=== PATIENT | female | born 1985 | race Caucasian/White ===

== ENCOUNTER 2018-05-26 12:46 | Emergency (ER) | payer BC, SELFPAY ==
[2018-05-26 13:37] VITALS: BP 135/91; PULSE 75; RESP 16; TEMP 36.5; O2SAT 100
--- NOTE | 2018-05-26 21:11 | W.ED.GENAD ---
Discharge Plan Disposition Patient Disposition: HOME Condition: Good Discharge Details Chief Complaint: Laceration Clinical Impression: Laceration [facility] Care Provider: [facility] Provider: Alexander Amaya Home Meds and New Rx's Prescriptions: No Action No Known Home Meds RF: 0 Discharge Instructions Instructions: Care For Your Stitches (ED), Laceration (ED) Additional Instructions: Please keep the area dry for 48 hours. Please have the sutures removed in the next 7-10 days. If you notice any redness, drainage or discharge please return immediately for reevaluation. If you notice any worsening of your symptoms, or any new symptoms such as vomiting, diarrhea, fever, chills, shortness of breath, chest pain, numbness, weakness, or fainting , please return immediately to the emergency department for reevaluation. Please follow up with your primary care provider as soon as possible for reassessment and reevaluation. As always, it was a pleasure participating in your medical care today. Discharge Data Discharge Date/Time-TO BE ENTERED AT DEPARTURE: 05/26/18 14:25 Medical Decision Making This is a 32-year-old female who presents for a laceration on her right distal brooks. It occurred while mountain biking. The area was initially cleaned on the scene and Steri-Stripped by her significant other. It occurred over 4 hours prior to arrival. Physical exam demonstrates a roughly 5 cm lesion, the proximal 2 cm or very superficial laceration that is linear, with no involvement of the deep tissues or tendons. Distal to this is a very superficial abrasion. The entire area was anesthetized with 1% lidocaine, total of 7 cc. He was then scrubbed vigorously with chlorhexidine scrub, and washed with high-powered normal saline with copious amounts of irrigation. The area was then sutured using 2 5-0 nylon sutures. In a simple interrupted fashion. Good wound edge reapproximation was made. Patient tolerated procedure well. Triple antibiotic ointment and bandaging was in place. Patient's tetanus is up-to-date. She will be discharged home with close follow-up. We discussed red flags which return. I have extensively reviewed the treatment plan and discharge instructions with the patient. I have addressed all patient concerns at this time. The patient was made aware of what symptoms to monitor for that would warrant a return to the emergency department. Discussed the plan with the patient, they demonstrate verbal understanding and agreement with our assessment and plan at this time. HPI General Date/Time Provider Initiated Documentation: 05/26/18 14:00. HPI Narrative: This is a 32-year-old female who presents for a laceration on her right brooks. She is mountain biking when the metal pedal caught her brooks and caused a cut. This occurred roughly 6 hours prior to arrival. Her tetanus is up-to-date. Aside for the pain there she has no other complaints of numbness tingling or weakness. On the scene her boyfriend who is an EMT did apply Steri-Strips to help bring the skin back together. Patient denies any complaints at this time. No other pertinent past medical surgical or social history. Related Data Home Medications Medication Instructions Recorded Confirmed Unknown [No Known Home Meds] 05/26/18 05/26/18 Allergies Allergy/AdvReac Type Severity Reaction Status Date / Time No Known Allergies Allergy Unverified 05/26/18 13:38 General Stated Complaint: Laceration MARIE: 4 Review of Systems Review of Systems All systems reviewed & are unremarkable except as noted in HPI and below PFSH Social History Smoking/Tobacco Use Status: Never Exam Narrative Exam Narrative: 1.Const: Well-nourished, Well-developed, appearing stated age 2.Eyes: PERRL, no conjunctival injection, and symmetrical lids. 3.ENT: Atraumatic external nose and ears. Moist MM. Neck: Symmetric, trachea midline, No thyromegaly. 4.CVS: +S1/S2, No murmurs or gallops. Peripheral pulses 2+ and equal in all extremities. Brisk capillary refill in all extremities. 5.RESP: Unlabored respiratory effort. Clear to auscultation bilaterally. No wheezes rales or rhonchi 6.GI: Soft, Nontender/Nondistended, No hepatosplenomegaly. No guarding or rebound. 7.MSK: Normocephalic, Extremities w/o deformity or ttp No cyanosis or clubbing, Normal movement of all extremities. Normal movement with flexion extension of her lower extremity at all joints. Normal sensation. Patient has a 5 cm laceration over her anterior brooks on the right lower extremity. The proximal 2 cm are a shallow laceration with no significant involvement of the deep structures. The laceration itself is very superficial and linear. Distal to this segment is an abrasion, with no subsequent laceration. No evidence of bony involvement, or other abnormality. 8.Skin: Warm, Dry. No rashes or lesions. 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 Sensation grossly intact, no focal neurologic deficits. 10.Psych: (AAO) x3. Appropriate mood and affect Course Vital Signs Temperature 36.5 C 05/26/18 13:37 Pulse 75 05/26/18 13:37 Respiratory Rate 16 05/26/18 13:37 Blood Pressure 135/91 H 05/26/18 13:37 Pulse Oximetry 100 05/26/18 13:37 Temperature 36.5 C 05/26/18 13:37 Temperature Source Skin 05/26/18 13:37 Pulse 75 05/26/18 13:37 Respiratory Rate 16 05/26/18 13:37 Respiratory Effort 05/26/18 13:39 Blood Pressure 135/91 H 05/26/18 13:37 Blood Pressure Position Sitting 05/26/18 13:37 Pulse Oximetry 100 05/26/18 13:37 Pain Level 0 05/26/18 14:27
--- NOTE | 2018-05-26 21:15 | ED.GENADUL_ITS ---
Discharge Plan Disposition Patient Disposition: HOME Condition: Good Discharge Details Chief Complaint: Laceration Clinical Impression: Laceration Primary Care Provider: [facility] Provider: Alexander Amaya Home Meds and New Rx's Prescriptions: No Action No Known Home Meds RF: 0 Discharge Instructions Instructions: Care For Your Stitches (ED), Laceration (ED) Additional Instructions: Please keep the area dry for 48 hours. Please have the sutures removed in the next 7-10 days. If you notice any redness, drainage or discharge please return immediately for reevaluation. If you notice any worsening of your symptoms, or any new symptoms such as vomiting, diarrhea, fever, chills, shortness of breath , chest pain, numbness, weakness, or fainting , please return immediately to the emergency department for reevaluation. Please follow up with your primary care provider as soon as possible for reassessment and reevaluation. As always, it was a pleasure participating in your medical care today. Discharge Data Discharge Date/Time-TO BE ENTERED AT DEPARTURE: 05/26/18 14:25 Medical Decision Making This is a 32-year-old female who presents for a laceration on her right distal brooks. It occurred while mountain biking. The area was initially cleaned on the scene and Steri-Stripped by her significant other. It occurred over 4 hours prior to arrival. Physical exam demonstrates a roughly 5 cm lesion , the proximal 2 cm or very superficial laceration that is linear, with no involvement of the deep tissues or tendons. Distal to this is a very superficial abrasion. The entire area was anesthetized with 1% lidocaine, total of 7 cc. He was then scrubbed vigorously with chlorhexidine scrub, and washed with high-powered normal saline with copious amounts of irrigation. The area was then sutured using 2 5-0 nylon sutures. In a simple interrupted fashion. Good wound edge reapproximation was made. Patient tolerated procedure well. Triple antibiotic ointment and bandaging was in place. Patient 's tetanus is up-to-date. She will be discharged home with close follow-up. We discussed red flags which return. I have extensively reviewed the treatment plan and discharge instructions with the patient. I have addressed all patient concerns at this time. The patient was made aware of what symptoms to monitor for that would warrant a return to the emergency department. Discussed the plan with the patient, they demonstrate verbal understanding and agreement with our assessment and plan at this time. HPI General Date/Time Provider Initiated Documentation: 05/26/18 14:00 . HPI Narrative: This is a 32-year-old female who presents for a laceration on her right brooks. She is mountain biking when the metal pedal caught her brooks and caused a cut. This occurred roughly 6 hours prior to arrival. Her tetanus is up-to-date. Aside for the pain there she has no other complaints of numbness tingling or weakness. On the scene her boyfriend who is an EMT did apply Steri-Strips to help bring the skin back together. Patient denies any complaints at this time. No other pertinent past medical surgical or social history. Related Data Home Medications Medication Instructions Recorded Confirmed Unknown [No Known Home Meds] 05/26/18 05/26/18 Allergies Allergy/AdvReac Type Severity Reaction Status Date / Time No Known Allergies Allergy Unverified 05/26/18 13:38 General Stated Complaint: Laceration MARIE: 4 Review of Systems Review of Systems All systems reviewed & are unremarkable except as noted in HPI and below PFSH Social History Smoking/Tobacco Use Status: Never Exam Narrative Exam Narrative: 1.Const: Well-nourished, Well-developed, appearing stated age 2.Eyes: PERRL, no conjunctival injection, and symmetrical lids. 3.ENT: Atraumatic external nose and ears. Moist MM. Neck: Symmetric, trachea midline, No thyromegaly. 4.CVS: +S1/S2, No murmurs or gallops. Peripheral pulses 2+ and equal in all extremities. Brisk capillary refill in all extremities. 5.RESP: Unlabored respiratory effort. Clear to auscultation bilaterally. No wheezes rales or rhonchi 6.GI: Soft, Nontender/Nondistended, No hepatosplenomegaly. No guarding or rebound. 7.MSK: Normocephalic, Extremities w/o deformity or ttp No cyanosis or clubbing, Normal movement of all extremities. Normal movement with flexion extension of her lower extremity at all joints. Normal sensation. Patient has a 5 cm laceration over her anterior brooks on the right lower extremity. The proximal 2 cm are a shallow laceration with no significant involvement of the deep structures. The laceration itself is very superficial and linear. Distal to this segment is an abrasion, with no subsequent laceration. No evidence of bony involvement, or other abnormality. 8.Skin: Warm, Dry. No rashes or lesions. 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 Sensation grossly intact, no focal neurologic deficits. 10.Psych: (AAO) x3. Appropriate mood and affect Course Vital Signs Temperature 36.5 C 05/26/18 13:37 Pulse 75 05/26/18 13:37 Respiratory Rate 16 05/26/18 13:37 Blood Pressure 135/91 H 05/26/18 13:37 Pulse Oximetry 100 05/26/18 13:37 Temperature 36.5 C 05/26/18 13:37 Temperature Source Skin 05/26/18 13:37 Pulse 75 05/26/18 13:37 Respiratory Rate 16 05/26/18 13:37 Respiratory Effort 05/26/18 13:39 Blood Pressure 135/91 H 05/26/18 13:37 Blood Pressure Position Sitting 05/26/18 13:37 Pulse Oximetry 100 05/26/18 13:37 Pain Level 0 05/26/18 14:27
== END 2018-05-26 14:25 | disposition home or self-care (01) ==
PROVIDERS: Emergency Provider Student in an Organized Health Care Education/Training Program
DX: S81.811A Laceration without foreign body, right lower leg, initial encounter (principal); V18.0XXA Pedal cycle driver injured in noncollision transport accident in nontraffic accident, initial encounter
CPT/HCPCS: 12002